=== PATIENT | male | born 1970 | race Caucasian/White ===

== ENCOUNTER 2018-09-08 07:40 | Emergency (ER) | payer OTHER ==
[~2018-09-08] VITALS: Ht 188 cm; Wt 117.9 kg
[~2018-09-08 07:40] MED LIST: BACTRIM DS TAB1 EACH PO; CIPROFLOXACIN500 M1 PO; CLINDAMYCIN HC150 MG OR; FLAGYL500 M1 PO; LISINOPRIL10 MG PO; NOHOMEMEDICATIONS; NORCO 5-325 TA1 EAC1 PO; NORCO 5-325 TA1 EACH PO; NORCO 7.5-3251 EACH PO; OMEPRAZOLE 20 M20 M1 PO; PHENERGAN 25 MG25 M1 PO; PREDNISONE 20 M20 MG PO; VENTOLIN HFA 1818 GM INH; ZANTAC 150MG T150 MG PO; ZPAK PO
[2018-09-08 08:10] LABS: URINE BILIRUBIN NEGATIVE (Negative); URINE BLOOD TRACE (Negative); URINE CLARITY CLEAR; URINE COLOR YELLOW; URINE GLUCOSE-RANDOM NEGATIVE (Negative); URINE KETONES NEGATIVE (Negative); URINE LEUKOCYTES-REFLEX NEGATIVE (Negative); URINE NITRITE-REFLEX NEGATIVE (Negative); URINE PROTEIN 1+ (Negative); URINE SPECIFIC GRAVITY 1.025 (1.005-1.030); URINE UROBILINOGEN 0.2 E.U./dl (0.2-1.0)
[2018-09-08 08:30] LABS: ABSOLUTE BASOPHILS 0.1 thou/uL (0.0-0.2); ABSOLUTE EOSINOPHILS 0.1 thou/uL (0.0-0.7); ABSOLUTE LYMPHOCYTES 1.6 thou/uL (0.8-5.3); ABSOLUTE MONOCYTES 0.5 thou/uL (0.0-1.2); ABSOLUTE NEUTROPHILS 9.5 thou/uL (1.6-8.1); BASOPHILS 0.7 %; EOSINOPHILS 0.9 %; HEMATOCRIT 43.9 % (42.0-52.0); HEMOGLOBIN 15.4 gm/dL (14.0-18.0); LYMPHOCYTES 13.7 %; MCH 31.3 pg (26.0-34.0); MCV 89.4 fL (80.0-100.0); MONOCYTES 4.2 %; MPV 8.5 fl. (7.2-11.1); NUCLEATED RBCS 0 /100WBC; PLATELET COUNT* 310 thou/uL (150-400); POLYS 80.5 %; RBC 4.91 mil/uL (4.50-6.00); RDW-CV 13.1 % (10.5-14.5); WBC 11.8 thou/uL (4.0-11.0)
[2018-09-08 08:37] LABS: CALCIUM 9.1 mg/dL (8.5-10.1); CREATININE 1.2 mg/dL (0.6-1.3); POTASSIUM 3.8 mmol/L (3.5-5.1)
[2018-09-08 08:52] LABS: ALBUMIN 3.6 g/dL (3.4-5.0); TOTAL BILIRUBIN 0.5 mg/dL (<0.1-1.0); TOTAL PROTEIN 7.9 g/dL (6.4-8.2)
[2018-09-08] MEDS ORDERED: ONDANSETRON HCL4 M2 PO (11:01)
[2018-09-08 11:15] VITALS: BP 200/99
== END 2018-09-08 11:18 | disposition home or self-care (01) ==
LOC: M.ERS 07:40
PROVIDERS: Personal Emergency Response Attendant
DX: K59.00 Constipation, unspecified (principal); K76.0 Fatty (change of) liver, not elsewhere classified; R11.2 Nausea with vomiting, unspecified; F17.200 Nicotine dependence, unspecified, uncomplicated

== ENCOUNTER 2021-01-17 16:09 | Emergency (ER) | payer OTHER ==
[~2021-01-17] VITALS: Ht 188 cm; Wt 131.5 kg
[~2021-01-17 16:09] MED LIST changes: +ONDANSETRON HCL4 M2 PO
[2021-01-17] MEDS ORDERED: CHLORTHALIDONE25 MG PO (16:23)
[2021-01-17] MEDS ORDERED: COZAAR 25 MG TA25 MG PO (16:24)
[2021-01-17] MEDS ORDERED: LIPITOR 20 MG T20 M1 PO (16:24)
[2021-01-17] MEDS ORDERED: BACTRIM DS TAB1 EACH PO (17:22)
[2021-01-17] MEDS ORDERED: CEPHALEXIN500 MG PO (17:22)
[2021-01-17] MEDS ORDERED: HYDROCODON-ACE1 EAC7 PO (17:38)
[2021-01-17 18:04] VITALS: BP 169/106
== END 2021-01-17 18:05 | disposition home or self-care (01) ==
LOC: M.ERS 16:09
DX: S60.351A Superficial foreign body of right thumb, initial encounter (principal); L03.011 Cellulitis of right finger; I10 Essential (primary) hypertension; E78.5 Hyperlipidemia, unspecified; X58.XXXA Exposure to other specified factors, initial encounter; Y93.89 Activity, other specified; Y92.89 Other specified places as the place of occurrence of the external cause; Y99.8 Other external cause status